=== PATIENT | female | born 1990 | race Caucasian/White ===

== ENCOUNTER 2017-03-10 14:21 | Emergency (ER) | payer SELFPAY ==
[~2017-03-10] VITALS: Ht 165.1 cm; Wt 60.0 kg
[2017-03-10] MEDS ORDERED: ALBUTEROL SULFATE HFA 90 MCG/PUFF 8 GM INHALER IH ONE (17:00)
[2017-03-10] MEDS ORDERED: DEXAMETHASONE SOD PHOS 4 MG/ML 5 ML VIAL IM ONE (17:00)
[2017-03-10 17:06] VITALS: BP 121/78
== END 2017-03-10 17:17 | disposition home or self-care (01) ==
LOC: EMS 14:23
DX: J40 Bronchitis, not specified as acute or chronic (principal)
CPT/HCPCS: 71010; 81025; 94664; 96372; 99283; J1100; J3535

== ENCOUNTER 2017-03-12 23:19 | Emergency (ER) | payer SELFPAY ==
[~2017-03-12] VITALS: Ht 157.5 cm; Wt 60.0 kg
[2017-03-13 01:51] VITALS: BP 112/67
== END 2017-03-13 02:03 | disposition home or self-care (01) ==
LOC: EMS 23:20
DX: J40 Bronchitis, not specified as acute or chronic (principal)
CPT/HCPCS: 99281; 99282